=== PATIENT | male | born 1985 | race African-American/Black ===

== ENCOUNTER 2018-03-24 10:21 | Emergency (ER) | payer MEDICARE | END 2018-03-24 11:10 | disposition home or self-care (01) | LOC: ER 10:21 | DX: S29.011A Strain of muscle and tendon of front wall of thorax, initial encounter (principal); S46.912A Strain of unspecified muscle, fascia and tendon at shoulder and upper arm level, left arm, initial encounter; I10 Essential (primary) hypertension; X50.9XXA Other and unspecified overexertion or strenuous movements or postures, initial encounter; Y93.89 Activity, other specified; Y99.8 Other external cause status; Y92.89 Other specified places as the place of occurrence of the external cause | CPT/HCPCS: 99283 ==

== ENCOUNTER 2019-08-09 17:01 | Emergency (ER) | payer MEDICARE ==
[~2019-08-09] VITALS: Ht 177.8 cm; Wt 97.5 kg
[~2019-08-09 17:01] MED LIST: DIAZ5TAB PO; METH4TAB2 PO; NAPR500T8 PO
--- NOTE | 2019-08-09 17:23 | PHYS DOC ---
Past Medical History Past Medical History: Hypertension Additional Past Medical Histor: skin infection; drug abuse (SCARLETT ROCHA APRN) Past Surgical History: No Surgical History (SCARLETT ROCHA APRN) Alcohol Use: Occasionally Drug Use: Phencyclidine (SCARLETT ROCHA APRN) Adult General Chief Complaint Chief Complaint: ALTERED MENTAL STATUS HPI HPI Patient is a 33 year old male who presents to the emergency department after being found down by scooter outside. The patient admits to using PCP and drinking alcohol today. The patient was altered for EMS however has become more more alert on arrival to the emergency Department. Denies other complaints. (SCARLETT ROCHA APRN) Review of Systems Review of Systems Constitutional: Denies fever or chills [] Eyes: Denies change in visual acuity, redness, or eye pain [] HENT: Denies nasal congestion or sore throat [] Respiratory: Denies cough or shortness of breath [] Cardiovascular: No additional information not addressed in HPI [] GI: Denies abdominal pain, nausea, vomiting, bloody stools or diarrhea [] : Denies dysuria or hematuria [] Musculoskeletal: Denies back pain or joint pain [] Integument: Denies rash or skin lesions [] Neurologic: Denies headache, focal weakness or sensory changes [] Endocrine: Denies polyuria or polydipsia [] Complete systems were reviewed and found to be within normal limits, except as documented in this note. (SCARLETT ROCHA APRN) Current Medications Current Medications Current Medications Medications (Trade) Dose Ordered Sig/Ailyn Start Time Stop Time Status Last Admin Dose Admin Ondansetron HCl (Zofran) 4 mg 1X ONCE 08/09/19 17:30 08/09/19 17:31 DC 08/09/19 17:24 4 MG Sodium Chloride 1,000 ml @ 1,000 mls/hr 1X ONCE 08/09/19 17:30 08/09/19 18:29 DC 08/09/19 17:24 1,000 MLS/HR (DENNY BE MD) Allergies Allergies Allergies Coded Allergies Type Severity Reaction Last Updated Verified No Known Drug Allergies 07/08/15 No (DENNY BE MD) Physical Exam Physical Exam Constitutional: Well developed, well nourished, no acute distress, non-toxic appearance, smells of ETOH. HENT: Normocephalic, atraumatic, bilateral external ears normal, oropharynx moist, no oral exudates, nose normal. [] Eyes: PERRLA, EOMI, conjunctiva normal, no discharge. [] Neck: Normal range of motion, no tenderness, supple, no stridor. [] Cardiovascular:Heart rate regular rhythm, no murmur [] Lungs & Thorax: Bilateral breath sounds clear to auscultation [] Abdomen: Bowel sounds normal, soft, no tenderness, no masses, no pulsatile masses. [] Skin: Warm, dry, no erythema, no rash. [] Back: No tenderness, no CVA tenderness. [] Extremities: No tenderness, no cyanosis, no clubbing, ROM intact, no edema. [] Neurologic: GCS of 14, normal motor function, normal sensory function, no focal deficits noted. [] Psychologic: Affect normal, judgement normal, mood normal. [] (SCARLETT ROCHA APRN) Current Patient Data Vital Signs Vital Signs Date Time Temp Pulse Resp B/P (MAP) Pulse Ox O2 Delivery O2 Flow Rate FiO2 08/09/19 20:02 102 16 97 08/09/19 17:01 98.7 187/108 (134) Room Air 98.7 (DENNY BE MD) Lab Values Laboratory Tests Test 08/09/19 17:20 08/09/19 17:40 White Blood Count 6.2 x10^3/uL (4.0-11.0) Red Blood Count 5.03 x10^6/uL (4.30-5.70) Hemoglobin 15.3 g/dL (13.0-17.5) Hematocrit 45.3 % (39.0-53.0) Mean Corpuscular Volume 90 fL (79-100) Mean Corpuscular Hemoglobin 31 pg (25-35) Mean Corpuscular Hemoglobin Concent 34 g/dL (31-37) Red Cell Distribution Width 14.1 % (11.5-14.5) Platelet Count 244 x10^3/uL (140-400) Neutrophils (%) (Auto) 51 % (31-73) Lymphocytes (%) (Auto) 37 % (24-48) Monocytes (%) (Auto) 8 % (0-9) Eosinophils (%) (Auto) 3 % (0-3) Basophils (%) (Auto) 1 % (0-3) Neutrophils # (Auto) 3.2 x10^3/uL (1.8-7.7) Lymphocytes # (Auto) 2.3 x10^3/uL (1.0-4.8) Monocytes # (Auto) 0.5 x10^3/uL (0.0-1.1) Eosinophils # (Auto) 0.2 x10^3/uL (0.0-0.7) Basophils # (Auto) 0.0 x10^3/uL (0.0-0.2) Sodium Level 142 mmol/L (136-145) Potassium Level 4.1 mmol/L (3.5-5.1) Chloride Level 106 mmol/L (98-107) Carbon Dioxide Level 30 mmol/L (21-32) Anion Gap 6 (6-14) Blood Urea Nitrogen 8 mg/dL (8-26) Creatinine 1.1 mg/dL (0.7-1.3) Estimated GFR (Cockcroft-Gault) 92.2 BUN/Creatinine Ratio 7 (6-20) Glucose Level 107 mg/dL (70-99) H Calcium Level 8.9 mg/dL (8.5-10.1) Total Bilirubin 0.2 mg/dL (0.2-1.0) Aspartate Amino Transferase (AST) 19 U/L (15-37) Alanine Aminotransferase (ALT) 31 U/L (16-63) Alkaline Phosphatase 68 U/L (46-116) Total Protein 7.1 g/dL (6.4-8.2) Albumin 3.8 g/dL (3.4-5.0) Albumin/Globulin Ratio 1.2 (1.0-1.7) Ethyl Alcohol Level 228 mg/dL (0-10) H Urine Collection Type Unknown Urine Color Yellow Urine Clarity Clear Urine pH 7.0 Urine Specific [place] <=1.005 Urine Protein Negative mg/dL (NEG-TRACE) Urine Glucose (UA) Negative mg/dL (NEG) Urine Ketones (Stick) Negative mg/dL (NEG) Urine Blood Negative (NEG) Urine Nitrite Negative (NEG) Urine Bilirubin Negative (NEG) Urine Urobilinogen Dipstick 0.2 mg/dL (0.2 mg/dL) Urine Leukocyte Esterase Negative (NEG) Urine RBC 0 /HPF (0-2) Urine WBC 0 /HPF (0-4) Urine Bacteria 0 /HPF (0-FEW) Urine Opiates Screen Neg (NEG) Urine Methadone Screen Neg (NEG) Urine Barbiturates Neg (NEG) Urine Phencyclidine Screen Pos (NEG) Urine Amphetamine/Methamphetamine Neg (NEG) Urine Benzodiazepines Screen Neg (NEG) Urine Cocaine Screen Neg (NEG) Urine Cannabinoids Screen Neg (NEG) Urine Ethyl Alcohol Pos (NEG) Laboratory Tests 08/09/19 17:20 Laboratory Tests 08/09/19 17:20 (DENNY BE MD) Lab Values Laboratory Tests Test 08/09/19 17:20 08/09/19 17:40 White Blood Count 6.2 x10^3/uL (4.0-11.0) Red Blood Count 5.03 x10^6/uL (4.30-5.70) Hemoglobin 15.3 g/dL (13.0-17.5) Hematocrit 45.3 % (39.0-53.0) Mean Corpuscular Volume 90 fL (79-100) Mean Corpuscular Hemoglobin 31 pg (25-35) Mean Corpuscular Hemoglobin Concent 34 g/dL (31-37) Red Cell Distribution Width 14.1 % (11.5-14.5) Platelet Count 244 x10^3/uL (140-400) Neutrophils (%) (Auto) 51 % (31-73) Lymphocytes (%) (Auto) 37 % (24-48) Monocytes (%) (Auto) 8 % (0-9) Eosinophils (%) (Auto) 3 % (0-3) Basophils (%) (Auto) 1 % (0-3) Neutrophils # (Auto) 3.2 x10^3/uL (1.8-7.7) Lymphocytes # (Auto) 2.3 x10^3/uL (1.0-4.8) Monocytes # (Auto) 0.5 x10^3/uL (0.0-1.1) Eosinophils # (Auto) 0.2 x10^3/uL (0.0-0.7) Basophils # (Auto) 0.0 x10^3/uL (0.0-0.2) Sodium Level 142 mmol/L (136-145) Potassium Level 4.1 mmol/L (3.5-5.1) Chloride Level 106 mmol/L (98-107) Carbon Dioxide Level 30 mmol/L (21-32) Anion Gap 6 (6-14) Blood Urea Nitrogen 8 mg/dL (8-26) Creatinine 1.1 mg/dL (0.7-1.3) Estimated GFR (Cockcroft-Gault) 92.2 BUN/Creatinine Ratio 7 (6-20) Glucose Level 107 mg/dL (70-99) H Calcium Level 8.9 mg/dL (8.5-10.1) Total Bilirubin 0.2 mg/dL (0.2-1.0) Aspartate Amino Transferase (AST) 19 U/L (15-37) Alanine Aminotransferase (ALT) 31 U/L (16-63) Alkaline Phosphatase 68 U/L (46-116) Total Protein 7.1 g/dL (6.4-8.2) Albumin 3.8 g/dL (3.4-5.0) Albumin/Globulin Ratio 1.2 (1.0-1.7) Ethyl Alcohol Level 228 mg/dL (0-10) H Urine Collection Type Unknown Urine Color Yellow Urine Clarity Clear Urine pH 7.0 Urine Specific [place] <=1.005 Urine Protein Negative mg/dL (NEG-TRACE) Urine Glucose (UA) Negative mg/dL (NEG) Urine Ketones (Stick) Negative mg/dL (NEG) Urine Blood Negative (NEG) Urine Nitrite Negative (NEG) Urine Bilirubin Negative (NEG) Urine Urobilinogen Dipstick 0.2 mg/dL (0.2 mg/dL) Urine Leukocyte Esterase Negative (NEG) Urine RBC 0 /HPF (0-2) Urine WBC 0 /HPF (0-4) Urine Bacteria 0 /HPF (0-FEW) Urine Opiates Screen Neg (NEG) Urine Methadone Screen Neg (NEG) Urine Barbiturates Neg (NEG) Urine Phencyclidine Screen Pos (NEG) Urine Amphetamine/Methamphetamine Neg (NEG) Urine Benzodiazepines Screen Neg (NEG) Urine Cocaine Screen Neg (NEG) Urine Cannabinoids Screen Neg (NEG) Urine Ethyl Alcohol Pos (NEG) Laboratory Tests 08/09/19 17:20 Laboratory Tests 08/09/19 17:20 (SCARLETT ROCHA APRN) EKG EKG EKG interpreted by Dr. Be Sinus tachycardia with rate of 106, NO STEMI.[] (SCARLETT ROCHA APRN) Radiology/Procedures Radiology/Procedures [][facility] [address] [place] [address] IMAGING REPORT Signed PATIENT: MALIK EAST ACCOUNT: [id number] : 1985 LOCATION: ER AGE: 33 SEX: M EXAM STATUS: PRE ER ORD. PHYSICIAN: SCARLETT ROCHA APRN REASON: found down, ams PROCEDURE: CT HEAD WO CONTRAST CT head without contrast PQRS statement: CT scans at this facility use dose reduction including either automated exposure control, iterative reconstructions, and /or weight based radiation dosing via mA and kV modification when appropriate to reduce radiation dose to as low as reasonably achievable. HISTORY: Found down, altered mental status. TECHNIQUE: Noncontrast imaging skull base to vertex was acquired. FINDINGS: No intracranial hemorrhage, mass, hydrocephalus, extra-axial fluid collections or infarction. Imaged orbits, mastoids and bones are unremarkable. IMPRESSION: Normal exam. Electronically signed by: Al Mayo MD (08/09/2019 5:46 PM) [facility] DICTATED and SIGNED BY: AL MAYO MD DATE: 08/09/191745 (SCARLETT ROCHA APRN) Course & Med Decision Making Course & Med Decision Making Pertinent Labs and Imaging studies reviewed. (See chart for details) Appears to be drug overdose will get labs, CT head, and give supportive care. Labs are unremarkable with exception of elevated Alcohol of 228 and PCP. 2030: Patient able to walk, drink, and talk. GCS of 15. Will d/c home. (SCARLETT ROCHA APRN) Course & Med Decision Making I was not not involved in the care of this patient after 1800 on 08/09/19. (DENNY BE MD) Dragon Disclaimer Dragon Disclaimer This electronic medical record was generated, in whole or in part, using a voice recognition dictation system. (SCARLETT ROCHA APRN) Departure Departure Impression: Primary Impression: Intoxication Disposition: 01 HOME, SELF-CARE Condition: STABLE Referrals: NO PCP (PCP) Patient Instructions: Alcohol Intoxication Additional Instructions: Thank you for visiting [facility]. We appreciate you trusting us with your care. If any additional problems come up don't hesitate to return to visit us. Please follow up with your primary care provider so they can plan additional care if needed and know about the problem that you had. If symptoms worsen come back to the Emergency Department. Any concerning symptoms that start such as chest pain, shortness of air, weakness or numbness on one side of the body, running high fevers or any other concerning symptoms return to the ER. SCARLETT ROCHA APRN Aug 09, 2019 17:23 DENNY BE MD Aug 10, 2019 18:13
[2019-08-09] MEDS ORDERED: IV NORMAL SALINE 1000ML BAG 1,000 ML IV ONE (17:30)
[2019-08-09] MEDS ORDERED: ONDANSETRON PF 4 MG/2 ML VIAL. IV ONE (17:30)
[2019-08-09 17:35] LABS: BASO % 1 % (0-3); EOS # 0.2 x10^3/uL (0.0-0.7); EOS % 3 % (0-3); HEMATOCRIT 45.3 % (39.0-53.0); HEMOGLOBIN 15.3 g/dL (13.0-17.5); LYMPH # 2.3 x10^3/uL (1.0-4.8); LYMPH % 37 % (24-48); MEAN CORPUSCULAR HEMOGLOBIN 31 pg (25-35); MEAN CORPUSCULAR HGB CONC 34 g/dL (31-37); MEAN CORPUSCULAR VOLUME 90 fL (79-100); MONO # 0.5 x10^3/uL (0.0-1.1); MONO % 8 % (0-9); NEUT # 3.2 x10^3/uL (1.8-7.7); NEUT % 51 % (31-73); PLATELET COUNT 244 x10^3/uL (140-400); RED BLOOD COUNT 5.03 x10^6/uL (4.30-5.70); RED CELL DISTRIBUTION WIDTH 14.1 % (11.5-14.5); WHITE BLOOD COUNT 6.2 x10^3/uL (4.0-11.0)
[2019-08-09 17:45] LABS: CALCIUM 8.9 mg/dL (8.5-10.1); CREATININE 1.1 mg/dL (0.7-1.3); GFR 92.2; POTASSIUM 4.1 mmol/L (3.5-5.1)
[2019-08-09 17:49] LABS: BILIRUBIN,URINE NEGATIVE (NEG); CLARITY,URINE CLEAR; COLOR,URINE YELLOW; NITRITE,URINE NEGATIVE (NEG); PROTEIN,URINE NEGATIVE (NEG-TRACE); UROBILINOGEN,URINE 0.2 mg/dL (0.2 mg/dL)
--- NOTE | 2019-08-09 17:49 | RAD ---
CT head without contrast PQRS statement: CT scans at this facility use dose reduction including either automated exposure control, iterative reconstructions, and /or weight based radiation dosing via mA and kV modification when appropriate to reduce radiation dose to as low as reasonably achievable. HISTORY: Found down, altered mental status. TECHNIQUE: Noncontrast imaging skull base to vertex was acquired. FINDINGS: No intracranial hemorrhage, mass, hydrocephalus, extra-axial fluid collections or infarction. Imaged orbits, mastoids and bones are unremarkable. IMPRESSION: Normal exam. Electronically signed by: Yonny Mayo MD (08/09/2019 5:46 PM) [facility]
[2019-08-09 17:50] LABS: ALBUMIN 3.8 g/dL (3.4-5.0); ALBUMIN/GLOBULIN RATIO 1.2 (1.0-1.7); TOTAL BILIRUBIN 0.2 mg/dL (0.2-1.0); TOTAL PROTEIN 7.1 g/dL (6.4-8.2)
[2019-08-09 17:54] LABS: BARBITURATES NEG (NEG); BENZODIAZEPINES NEG (NEG); CANNABINOIDS NEG (NEG); COCAINE NEG (NEG); METHADONE NEG (NEG); OPIATES NEG (NEG); PHENCYCLIDINE POS (NEG)
[2019-08-09 17:58] LABS: AMPHETAMINE/METHAMPHETAMINE NEG (NEG)
[2019-08-09 18:00] LABS: BACTERIA,URINE 0 /HPF (0-FEW); RBC,URINE 0 /HPF (0-2); WBC,URINE 0 /HPF (0-4)
[2019-08-09 20:02] VITALS: BP 138/78
--- NOTE | 2019-08-10 10:55 | EKG ---
[facility] [address] [place] [address] Test Date: 2019-08-09 Test Time: 17:12:33 Pat Name: MALIK EAST Department: Room: Gender: M [employer]: : 1985 Requested By: SCARLETT ROCHA Order Number: [id number] Reading MD: Measurements Intervals [place] Rate: 106 P: 64 HI: 178 QRS: 28 QRSD: 82 T: 52 QT: 316 QTc: 421 Interpretive Statements SINUS TACHYCARDIA OTHERWISE NORMAL ECG No previous ECG available for comparison
== END 2019-08-09 20:39 | disposition home or self-care (01) ==
LOC: ER 17:01
DX: F10.129 Alcohol abuse with intoxication, unspecified (principal); R41.82 Altered mental status, unspecified; Y90.7 Blood alcohol level of 200-239 mg/100 ml; I10 Essential (primary) hypertension
CPT/HCPCS: 36415; 70450; 80053; 80307; 81001; 85025; 93005; 96361; 96374; 99285; G0480; J2405; J7030

== ENCOUNTER 2021-11-22 17:33 | Emergency (ER) | payer MEDICARE ==
[~2021-11-22] VITALS: Ht 167.6 cm; Wt 112.6 kg
[2021-11-22 18:29] VITALS: BP 161/91
== END 2021-11-22 22:28 | disposition left against medical advice (07) ==
LOC: ER 17:33
DX: R51.9 Headache, unspecified (principal); R03.0 Elevated blood-pressure reading, without diagnosis of hypertension; Z53.21 Procedure and treatment not carried out due to patient leaving prior to being seen by health care provider